=== PATIENT | female | born 1985 | race Caucasian/White ===

== ENCOUNTER 2022-06-03 11:00 | Emergency (ER) | payer BC ==
[~2022-06-03] VITALS: Ht 162.6 cm; Wt 65.8 kg
[2022-06-03] MEDS ORDERED: CYCLOBENZAPRINE HCL 10 MG TABLET PO ONE (11:30)
[2022-06-03] MEDS ORDERED: KETOROLAC TROMETHAMINE 30 MG INJ IM ONE (11:30)
[2022-06-03] MEDS ORDERED: ACETAMINOPHEN 325 MG TABLET PO ONE (11:30)
[2022-06-03] MEDS ORDERED: IBUP-1953 PO (11:46)
[2022-06-03] MEDS ORDERED: CYCLOBENZAPRINE HCL 10 MG TABLET ONE (12:02)
[2022-06-03] MEDS ORDERED: KETOROLAC TROMETHAMINE 30 MG INJ ONE (12:02)
[2022-06-03] MEDS ORDERED: ACETAMINOPHEN 325 MG TABLET ONE (12:03)
--- NOTE | 2022-06-03 12:48 | NUR ---
Gave pt and spouse RX and d/c instructions, pt verbalized understanding.
== END 2022-06-03 12:40 | disposition home or self-care (01) ==
LOC: ER 11:00
DX: M79.652 Pain in left thigh (principal)
CPT/HCPCS: 99283; 73502; 96372; J1885; A4663